=== PATIENT | female | born 1945 | race Caucasian/White ===

== ENCOUNTER → 2016-08-05 | Outpatient (CLI) | payer MEDICARE ==
--- NOTE | 2016-08-06 11:29 | MM ---
Reason for exam: screening (asymptomatic). Last mammogram was performed 1 year ago. History: Patient is postmenopausal. Family history of breast cancer in sister at age 30. Benign cyst aspiration of the left breast, 1998. Physical Findings: A clinical breast exam by your physician is recommended on an annual basis and results should be correlated with mammographic findings. MG 3D Screening Mammo W/Cad Bilateral CC and MLO view(s) were taken. Prior study comparison: July 26, 2015, bilateral MG 3d screening mammo w/cad. May 31, 2014, bilateral MG screening mammo w CAD. The breast tissue is heterogeneously dense. This may lower the sensitivity of mammography. New nodular density left CC view, 2.8cm from nipple. ASSESSMENT: Incomplete: need additional imaging evaluation, BI-RAD 0 RECOMMENDATION: Special view mammogram of the left breast. If lesion persists on supplemental views, image directed ultrasound is recommended. [facility] will attempt to contact patient to return for supplemental views and ultrasound if indicated.
== END | disposition home or self-care (01) ==
LOC: RADMAMWWP 07:33
PROVIDERS: ATTEND Family Medicine
DX: Z12.31 Encounter for screening mammogram for malignant neoplasm of breast (principal)
CPT/HCPCS: 77063; G0202

== ENCOUNTER → 2016-08-09 | Outpatient (CLI) | payer MEDICARE ==
--- NOTE | 2016-08-12 07:29 | MM ---
Reason for exam: additional evaluation requested from abnormal screening. Last mammogram was performed less than 1 month ago. History: Patient is postmenopausal. Family history of breast cancer in sister at age 30. Benign cyst aspiration of the left breast, 1998. Physical Findings: Nurse did not find any significant physical abnormalities on exam. MG 3D Work Up W/Cad LT Spot compression CC, spot compression MLO, and LM view(s) were taken of the left breast. Prior study comparison: August 05, 2016, bilateral MG 3d screening mammo w/cad. July 26, 2015, bilateral MG 3d screening mammo w/cad. There is no discrete abnormality including area of concern. These results were verbally communicated with the patient and result sheet given to the patient on 08/09/16. ASSESSMENT: Probably benign, BI-RAD 3 RECOMMENDATION: Follow-up diagnostic mammogram of the left breast in 6 months.
== END | disposition home or self-care (01) ==
LOC: RADMAMWWP 14:07
PROVIDERS: ATTEND Family Medicine
DX: R92.8 Other abnormal and inconclusive findings on diagnostic imaging of breast (principal)
CPT/HCPCS: G0206; G0279

== ENCOUNTER → 2018-04-30 | Outpatient (CLI) | payer MEDICARE ==
--- NOTE | 2018-05-01 11:36 | MM ---
Reason for exam: screening (asymptomatic). Last mammogram was performed 1 year and 1 month ago. History: Patient is postmenopausal. Family history of breast cancer in sister at age 30. Benign cyst aspiration of the left breast, 1998. Physical Findings: A clinical breast exam by your physician is recommended on an annual basis and results should be correlated with mammographic findings. MG 3D Screening Mammo W/Cad Bilateral CC and MLO view(s) were taken. Prior study comparison: April 09, 2017, left breast MG 3d diag mammo w/cad LT. August 09, 2016, left breast MG 3d work up w/cad LT. The breast tissue is heterogeneously dense. This may lower the sensitivity of mammography. There are benign appearing vascular calcifications bilaterally. There is no discrete abnormality. ASSESSMENT: Benign, BI-RAD 2 RECOMMENDATION: Routine screening mammogram of both breasts in 1 year.
== END ==
LOC: RADMAMWWP 07:50
PROVIDERS: ATTEND Internal Medicine
DX: Z12.31 Encounter for screening mammogram for malignant neoplasm of breast (principal)
CPT/HCPCS: 77063; 77067

== ENCOUNTER → 2019-06-24 | Outpatient (CLI) | payer MEDICARE ==
--- NOTE | 2019-06-25 14:21 | MM ---
Reason for exam: screening (asymptomatic). Last mammogram was performed 1 year and 2 months ago. History: Patient is postmenopausal. Family history of breast cancer in sister at age 30. Benign cyst aspiration of the left breast, 1998. Physical Findings: A clinical breast exam by your physician is recommended on an annual basis and results should be correlated with mammographic findings. MG 3D Screening Mammo W/Cad Bilateral CC and MLO view(s) were taken. Prior study comparison: April 30, 2018, bilateral MG 3d screening mammo w/cad. April 09, 2017, left breast MG 3d diag mammo w/cad LT. There are benign appearing vascular calcifications bilaterally. There is no discrete abnormality. ASSESSMENT: Benign, BI-RAD 2 RECOMMENDATION: Routine screening mammogram of both breasts in 1 year.
== END | disposition home or self-care (01) ==
LOC: RADMAMWWP 07:06
PROVIDERS: ATTEND Internal Medicine
DX: Z12.31 Encounter for screening mammogram for malignant neoplasm of breast (principal)
CPT/HCPCS: 77063; 77067

== ENCOUNTER → 2020-11-09 | Outpatient (CLI) | payer MEDICARE ==
--- NOTE | 2020-11-10 11:49 | MM ---
Reason for exam: screening (asymptomatic). Last mammogram was performed 1 year and 5 months ago. History: Patient is postmenopausal. Family history of breast cancer in sister at age 30. Benign cyst aspiration of the left breast, 1998. Physical Findings: A clinical breast exam by your physician is recommended on an annual basis and results should be correlated with mammographic findings. MG 3D Screening Mammo W/Cad Bilateral CC and MLO view(s) were taken. Prior study comparison: June 24, 2019, bilateral MG 3d screening mammo w/cad. April 30, 2018, bilateral MG 3d screening mammo w/cad. The breast tissue is heterogeneously dense. This may lower the sensitivity of mammography. Finding: There are typically benign vascular calcifications. ASSESSMENT: Benign, BI-RAD 2 RECOMMENDATION: Routine screening mammogram of both breasts in 1 year.
== END | disposition home or self-care (01) ==
LOC: RADMAMWWP 07:51
PROVIDERS: ATTEND Internal Medicine
DX: Z12.31 Encounter for screening mammogram for malignant neoplasm of breast (principal); Z78.0 Asymptomatic menopausal state; Z80.3 Family history of malignant neoplasm of breast
CPT/HCPCS: 77063; 77067

== ENCOUNTER → 2022-04-23 | Outpatient (CLI) | payer MEDICARE ==
--- NOTE | 2022-04-24 08:14 | MM ---
Reason for Exam: Screening (asymptomatic). Last mammogram was performed 1 year(s) and 6 month(s) ago. Patient History: Menarche at age 14. First Full-Term at age 21. Postmenopausal. Patient has history of breast feeding. 1998, Benign Cyst Aspiration on the left side. Sister had breast cancer, age 30. Risk Values: Veronica 5 year model risk: 2.9%. NCI Lifetime model risk: 4.9%. Prior Study Comparison: 12/05/1994 Screening Mammogram, [facility]. 05/05/2013 Bilateral Screening Mammogram, [facility]. 05/31/2014 Bilateral Screening Mammogram, [facility]. 07/26/2015 Bilateral Screening Mammogram, [facility]. 08/05/2016 Bilateral Screening Mammogram, [facility]. 04/30/2018 Bilateral Screening Mammogram, [facility]. 06/24/2019 Bilateral Screening Mammogram, [facility]. 11/09/2020 Bilateral Screening Mammogram, [facility]. Tissue Density: The breast tissue is heterogeneously dense. This may lower the sensitivity of mammography. Findings: Analyzed By CAD. There is no suspicious group of microcalcifications or new suspicious mass in either breast. Overall Assessment: Benign, BI-RAD 2 Management: Screening Mammogram of both breasts in 1 year. A clinical breast exam by your physician is recommended on an annual basis and results should be correlated with mammographic findings. Electronically signed and approved by: Jose Jaimes M.D. Radiologis
== END | disposition home or self-care (01) ==
LOC: RADMAMWWP 11:04
PROVIDERS: ATTEND Student in an Organized Health Care Education/Training Program
DX: Z12.31 Encounter for screening mammogram for malignant neoplasm of breast (principal); Z78.0 Asymptomatic menopausal state; Z80.3 Family history of malignant neoplasm of breast
CPT/HCPCS: 77063; 77067

== ENCOUNTER 2022-06-28 06:49 | Day surgery (SDC) | payer MEDICARE ==
[2022-06-27 08:28] VITALS: BMI 22.6
[2022-06-28] MEDS ORDERED: LACTATED RINGERS 1,000 ML IV SCH (07:17)
[2022-06-28] MEDS ORDERED: MIDAZOLAM 2 MG/2 ML VIAL IV PRN (07:17)
[2022-06-28] MEDS ORDERED: HYDROmorphone 0.5 MG/0.5 ML SYRINGE IVP PRN (07:17)
[2022-06-28] MEDS ORDERED: ONDANSETRON 4 MG/2 ML VIAL IVP ONE (07:17)
[2022-06-28] MEDS ORDERED: DEXAMETHASONE SOD PHOSPHATE 4 MG/ML 1 ML VIAL IV ONE (07:17)
[2022-06-28 07:20] VITALS: RESP 18
[2022-06-28] MEDS ORDERED: LACTATED RINGERS 1,000 ML IV ONE ×2 (07:22→10:11)
[2022-06-28] MEDS ORDERED: ONDANSETRON 4 MG/2 ML VIAL ONE (07:26)
[2022-06-28] MEDS ORDERED: MIDAZOLAM 2 MG/2 ML VIAL IVP ONE (07:51)
[2022-06-28] MEDS ORDERED: fentaNYL (PF) 50 MCG/1 ML VIAL IVP ONE (07:52)
--- NOTE | 2022-06-28 08:26 | P.ANPRN ---
Procedure Note - Anesthesia - Nerve Block Performed Left Popliteal Single Time Out Performed: Yes (751) Date of Procedure: 06/28/22 Procedure Start Time: 07:52 Procedure Stop Time: 07:54 Location of Patient: PreOp Indication: Acute Post-Operative Pain, Requested by Surgeon Specifically requested for management of pain by DrOmar: Ned Avalos Sedation Type: Sedate with meaningful contact maintained Preparation: Sterile Prep Position: Right Lateral Catheter: None Needle Types: Pajunk Needle Gauge: 21 Ultrasound used to visualize needle placement: Yes Ultrasound used to observe medication spread: Yes Injectate: 0.5% Ropivacaine (see comment for volume) (15cc+ 10cc nacl pf) Blood Aspirated: No Pain Paresthesia on Injection Noted: No Resistance on Injection: Normal Image Stored and Saved: Yes Events: Uneventful and Well Tolerated
--- NOTE | 2022-06-28 08:27 | P.ANPRN ---
Procedure Note - Anesthesia - Nerve Block Performed Left Adductor Canal Single Time Out Performed: Yes (751) Date of Procedure: 06/28/22 Procedure Start Time: 07:55 Procedure Stop Time: 07:58 Location of Patient: PreOp Indication: Acute Post-Operative Pain, Requested by Surgeon Specifically requested for management of pain by DrOmar: Ned Avalos Sedation Type: Sedate with meaningful contact maintained Preparation: Sterile Prep Position: Supine Catheter: None Needle Types: Pajunk Needle Gauge: 21 Ultrasound used to visualize needle placement: Yes Ultrasound used to observe medication spread: Yes Injectate: 0.5% Ropivacaine (see comment for volume) (15cc+ 10cc nacl pf) Blood Aspirated: No Pain Paresthesia on Injection Noted: No Resistance on Injection: Normal Image Stored and Saved: Yes Events: Uneventful and Well Tolerated
[2022-06-28] MEDS ORDERED: PROPOFOL 10 MG/ML 20 ML VIAL IV ONE (08:45)
[2022-06-28] MEDS ORDERED: PHENYLEPHRINE-0.9% NACL SYG 1,000 MCG/10 ML SYRINGE ONE (08:45)
[2022-06-28] MEDS ORDERED: fentaNYL (PF) 50 MCG/ML 2 ML AMP ONE (08:45)
[2022-06-28] MEDS ORDERED: SODIUM CHLORIDE 0.9% (PF) 10 ML VIAL ONE (08:45)
[2022-06-28] MEDS ORDERED: LIDOCAINE 2% INJ 20 MG/ML (2 ML VIAL) ONE (08:45)
[2022-06-28] MEDS ORDERED: ROPIVACAINE 5 MG/ML 30 ML VIAL ONE (08:45)
[2022-06-28] MEDS ORDERED: ceFAZolin 1,000 MG in SODIUM CHLORIDE 0.9% 1,000 ML IRRIGATION ONE (10:11)
[2022-06-28 10:31] VITALS: TEMP 96.8
[2022-06-28 11:56] VITALS: BP 151/74; PULSE 73
--- NOTE | 2022-06-28 14:28 | P.OP ---
Date of Procedure: 06/28/22 Preoperative Diagnosis: 1. Hallux rigidus left foot 2. Hammertoe second digit left foot Postoperative Diagnosis: 1. Same 2. Same Procedure(s) Performed: 1. First metatarsal phalangeal joint arthrodesis left foot 2. Hammertoe correction second digit left foot Implants: Arthrex MaxForce plate and screw Arthrex Dynanite hammertoe implant Anesthesia: [id number] Surgeon: Ned Avalos Estimated Blood Loss (ml): 0 Pathology: none sent Condition: stable Disposition: PACU Description of Procedure: Prior to the patient being brought to the operating room, anesthesia administered nerve block and left lower extremity. Then the patient was brought into the operative room placed on table supine position. Timeout was taken to confirm correct patient identifiers, correct procedure, and correct laterality of procedure. When the staff in the room were in agreement with the timeout, the patient was induced and placed under general anesthesia. A well-padded tourniquet was placed on the ankle. The foot was then prepped and draped in usual manner. The foot was exsanguinated with an Esmarch bandage and the tourniquet inflated to 250 mmHg. Attention directed over the first metatarsal phalangeal joint where a linear incision was made between the extensor hallucis longus tendon and the neurovascular structures. The incision was deepened down to the subcutaneous tissue careful to identify, avoid, and retract any neurovascular structures and cauterize any bleeding vessels. Blunt dissection was continued down to the joint capsule. A linear periosteal and capsular incision was made to the extensor hallucis longus tendon. Subperiosteal dissection was performed to expose the base of the proximal phalanx and head of the first metatarsal. A reamer saw was then used to contour the first metatarsal head and remove any of the osteophytes. Then a guidewire was placed centrally into the first metatarsal head and into the medullary canal parallel to the long access of the metatarsal. The concave reamer was then used to remove the articular cartilage and subchondral bone and expose bleeding medullary bone. The guidewire was removed and then used to aggressively fenestrate the head of the first metatarsal to promote bleeding. The guidewire was then inserted at the central aspect of the articular surface of the base of the proximal phalanx. It was advanced into the medullary canal parallel to the long axis of the phalanx. The convex reamer was then used to remove the articular cartilage and subchondral bone and expose bleeding medullary bone. The guidewire was removed and used to aggressively fenestrate this surface also. The wound is then thoroughly irrigated with antibiotic saline. Approximately 1 mL of Arthrex bone morphogenic protein material was placed between the arthrodesis segments. Then the MaxForce plate was placed dorsally across the arthrodesis site utilizing aligned in the plate to placed over the joint surface. It was temporarily fixated in position was checked under fluoroscopy. Once position was acceptable locking screws were placed in the distal holes in the proximal phalanx. A guidewire was then placed across the arthrodesis site to hold the joint in its position. Then the drill hole for the compression device of the plate was made the compression device inserted and then utilized to further compress the arthrodesis site. Once that was completed threaded olive wire was used to lock the plate in place and then the second compression screw was placed proximally to lock the plate and further compress the joint. A second nonlocking screw was placed in the proximal portion of the plate into the metatarsal and the last screw placed with locking screw in the most proximal portion of the plate on the metatarsal. Final fluoroscopic imaging showed complete compression across the arthrodesis site and proper alignment of the great toe. The wound is again irrigated with antibiotic saline. Deep closure was done with 2-0 Vicryl. Subcu closure done for Monocryl. And skin closure done with 3-0 Stratafix in a running subcuticular manner. Dermal glue was applied and allowed to dry. Steri-Strips are placed over the incision. Attention was then directed to the dorsal aspect of the second digit, where a linear incision was made over the proximal interphalangeal joint. The incision was deepened down to the saphenous tissue careful to identify, avoid, and retract any neurovascular structures and cauterize any bleeding vessels. Dissection was then carried down to the proximal interphalangeal joint capsule which was incised transversely resecting the collateral ligaments and exposing the proximal phalangeal head. A sagittal saw was used to remove the articular surface of the head of the proximal phalanx and the base of the middle phalanx. The toe was held in correction and noted to be rectus with correction of the transverse plane deformity. A guidewire was inserted into the cut end of the proximal phalanx and advanced down the medullary canal to the base. The drill bit for the placement of the hammertoe implant was then used to create the barge pilot hole. The same wire was removed and then inserted at the central aspect of the base of middle phalanx and advanced out the distal aspect of the toe. The drill bit was inserted over the wire and the middle phalanx drilled to the appropriate depth and diameter. The wire was then further retracted distally so that only a small portion was protruding from the base of middle phalanx. A 16 mm Arthrex hammertoe implant was then placed over the wire and then threaded into the middle phalanx until the position was appropriate. Then the arms of the distal portion of the implant were compressed with a hemostat and then it was aligned with the hole the proximal phalanx and then inserted and impacted until the bone was in full contact. Fluoroscopic imaging confirmed rectus alignment of the digit and proper placement of the hardware. The guidewire was advanced distally so it can aided deploying the arms of the implant and then the wire was retracted a removed completely. The wound is irrigated thoroughly with antibiotic saline. The extensor tendon was reapproximated with 2-0 Vicryl. Subcu closure done for Monocryl. Skin closure done with 3-0 nylon. All incisions were covered with an Arthrex jumpstart dressing. A bulky dry dressings applied to left foot.. The tourniquet was released and capillary refill return to all digits on the foot. Patient was then placed in a well- padded, well molded plaster posterior mold/sugar tong splint. The ankle and foot were held in neutral position until the splint was dried. Anesthesia was then reversed and the patient was taken recovery with vital signs stable
== END 2022-06-28 12:25 | disposition home or self-care (01) ==
LOC: OR 06:49
PROVIDERS: ATTEND Podiatrist
DX: M20.22 Hallux rigidus, left foot (principal); G89.18 Other acute postprocedural pain; M20.42 Other hammer toe(s) (acquired), left foot; I10 Essential (primary) hypertension; Z91.041 Radiographic dye allergy status; Z79.899 Other long term (current) drug therapy
CPT/HCPCS: 28285; 28750; 64447; 64445; 76942; C1713; J2250; J1100; J0690 ×2; J2405; J3010 ×2; J2795; J2370; J2704; J2001